=== PATIENT | male | born 1950 | race Caucasian/White ===

== ENCOUNTER 2018-05-06 08:16 | Outpatient (CLI) | payer OTHER ==
[~2018-05-06 08:16] MED LIST: AVALIDE 300-251 TAB; NORFLEX100MG PO; PLAVIX75 MG; PROSCAR5 MG; SINGULAIR5 MG; TRAM1TAB98 PO; ZOCOR20 MG
== END 2018-05-06 08:20 | disposition home or self-care (01) ==
LOC: RAD 08:16
DX: J30.1 Allergic rhinitis due to pollen (principal); J45.40 Moderate persistent asthma, uncomplicated; G47.33 Obstructive sleep apnea (adult) (pediatric); R06.02 Shortness of breath

== ENCOUNTER 2019-05-22 03:28 | Emergency (ER) | payer OTHER ==
[~2019-05-22] VITALS: Ht 185.4 cm; Wt 105.7 kg
== END 2019-05-22 05:57 | disposition home or self-care (01) ==
LOC: ER 03:28
DX: J32.8 Other chronic sinusitis (principal); J02.9 Acute pharyngitis, unspecified